=== PATIENT | male | born 1990 | race Caucasian/White ===

== ENCOUNTER 2017-03-31 12:59 | Emergency (ER) | payer BC ==
[~2017-03-31] VITALS: Ht 177.8 cm; Wt 102.5 kg
[2017-03-31 13:05] VITALS: TEMP 36.7; O2SAT 96; Ht 177.8 cm; Wt 102.5 kg
[2017-03-31] MEDS ORDERED: IBUP-1050 PO (13:14)
--- NOTE | 2017-03-31 13:24 | EMERGENCY ROOM VISIT NOTE ---
ED Visit Note First contact with patient: 13:07 CHIEF COMPLAINT: Ankle pain HISTORY OF PRESENT ILLNESS: This 26-year-old male patient presents to the emergency department ambulatory after sustaining an injury to the right ankle with a twisting, inversion motion when he twisted it 3 days ago. Complains of mild swelling and pain. The patient complains of pain along the outside of the ankle. The patient does not have pain of the foot. The patient rates the pain as sharp and 7/10. There was no audible pop. The patient is able to bear weight on the foot with moderate difficulty. Constant pain, worse with movement , weight bearing, and the dependent position. No knee pain, the patient is able to move their toes. No numbness or weakness of the foot, no laceration. The patient has not had a previous injury to this ankle. The patient has taken nothing for the pain. The patient denies any other injury. REVIEW OF SYSTEMS: A 6 system review of systems was completed with positives and pertinent negatives listed in the HPI. ALLERGIES: No known drug allergies MEDICATIONS: None PMH: Known SOCIAL HISTORY: The patient is a smoker PHYSICAL EXAM: Vital Signs: Reviewed Nurse's notes, vital signs stable. GENERAL : This is a 26-year-old male, no acute distress, but appears in pain, well- developed, well-nourished. MENTAL STATUS: Alert, oriented to person place and time, and cooperative. MUSCULOSKELETAL: The right ankle is swollen and tender over the lateral malleolus, but the skin is intact and there is no ligamentous instability. There is no fifth metatarsal tenderness. There is no tenderness over the rest of the foot. There is no calf or tibia/fibular tenderness. There is no visual deformity. The foot and toes are warm and well-perfused. Dorsalis pedis pulse 2+. Sensation to pain and light touch is intact. Capillary refill less than 2 seconds. EMERGENCY DEPARTMENT COURSE: I examined the patient. X-rays of the right ankle were reviewed by myself and read by radiology and reveal no fracture or dislocation. A gel splint was applied to the ankle under my direction and the position was satisfactory. Neurovascular status was rechecked and intact. The patient was instructed on the use of crutches. The patient was discharged home in good condition. RIGHT ANKLE 3 VIEWS CLINICAL HISTORY: Right ankle injury. FINDINGS: 3 views of the right ankle are obtained. No prior studies are available for comparison at the time of dictation. The skeletal structures are well mineralized. No fracture is seen. The ankle mortise is intact. There is a joint effusion. Soft tissue swelling is present around the ankle. IMPRESSION: Soft tissue swelling and joint effusion. No fracture is seen. Current/Historical Medications Scheduled Ibuprofen (Advil), 200 MG PO UD Allergies Coded Allergies: No Known Allergies (Unverified , 03/31/17) Vital Signs Date Time Temp Pulse Resp B/P (MAP) Pulse Ox O2 Delivery O2 Flow Rate FiO2 03/31/17 14:06 70 16 132/82 03/31/17 13:05 36.7 75 18 159/91 96 Room Air Departure Information Impression Primary Impression: Right ankle sprain Dispostion Home / Self-Care Condition GOOD Referrals No Doctor, Assigned (PCP) Mario Griffin, DO Patient Instructions Ankle Sprain, [facility] Additional Instructions Ice and elevate ankle for swelling and pain. Crutches with weight bearing as tolerated. Wear the splint 7-14 days or until pain subsides. Ibuprofen 600 mg every 6 hrs for pain. If ankle has not improved within 5-7 days, follow-up family doctor or orthopedic surgeon for further evaluation and management.
--- NOTE | 2017-03-31 13:35 | DIAGNOSTIC IMAGING REPORT ---
RIGHT ANKLE 3 VIEWS CLINICAL HISTORY: Right ankle injury. FINDINGS: 3 views of the right ankle are obtained. No prior studies are available for comparison at the time of dictation. The skeletal structures are well mineralized. No fracture is seen. The ankle mortise is intact. There is a joint effusion. Soft tissue swelling is present around the ankle. IMPRESSION: Soft tissue swelling and joint effusion. No fracture is seen. Electronically signed by: Scar Perrin M.D. 03/31/2017 1:34 PM Dictated Date/Time: 03/31/2017 1:33 PM
[2017-03-31 14:06] VITALS: BP 132/82; PULSE 70
== END 2017-03-31 14:08 | disposition home or self-care (01) ==
LOC: C.EDB 13:00 → C.EDD 14:08
DX: S93.401A Sprain of unspecified ligament of right ankle, initial encounter (principal); X58.XXXA Exposure to other specified factors, initial encounter; F17.200 Nicotine dependence, unspecified, uncomplicated

== ENCOUNTER 2017-10-27 01:52 | Emergency (ER) | payer BC, OTHER ==
[~2017-10-27] VITALS: Ht 177.8 cm; Wt 104.3 kg
[~2017-10-27 01:52] MED LIST: IBUP-1050 PO
[2017-10-27 02:02] VITALS: TEMP 36.9; Ht 177.8 cm; Wt 104.3 kg
[2017-10-27 02:39] LABS: CALCIUM 8.7 mg/dl (8.5-10.1); CREATININE 1.26 mg/dl (0.60-1.40); POTASSIUM 3.8 mmol/L (3.5-5.1)
[2017-10-27] MEDS ORDERED: LORAZEPAM 2 MG/ML 1 ML VIAL ONE (03:07)
[2017-10-27] MEDS ORDERED: HALOPERIDOL LACTATE 5 MG/ML 1 ML VIAL ONE (03:07)
--- NOTE | 2017-10-27 04:44 | EMERGENCY ROOM VISIT NOTE ---
History Report prepared by Marcelinoibkalyan: Denis Dacosta Under the Supervision of: Dr. Aline Canales D.O. First contact with patient: 01:59 Chief Complaint: ALCOHOL OVERDOSE Stated Complaint: ALCOHOL OVERDOSE History of Present Illness The patient is a 27 year old male who presents to the Emergency Room by EMS with complaints of constant alcohol intoxication beginning shortly prior to arrival. He denies any nausea, or pain. He denies drinking any alcohol tonight. The patient denies any falls or trauma. He states "I do what I do, and I do when I do it". Per nursing staff, the patient admitted to drinking 8 double IPA' s. HPI limited secondary to alcohol intoxication. Per EMS, [place] police found patient crawling on his hands and knees in a snowbank. Source of History: patient, nursing staff History Limited By: intoxication (alcohol) Onset: Shortly prior to arrival Quality: other (alcohol intoxication) Timing: constant Associated Symptoms: No headache, No neck pain, No chest pain, No nausea, No abdominal pain, No back pain Review of Systems ROS limited secondary to alcohol intoxication. Past Medical & Surgical Unobtainable secondary to alcohol intoxication. Family History Unobtainable secondary to alcohol intoxication. Social History Smoking Status: Current Every Day Smoker Unobtainable secondary to alcohol intoxication. Current/Historical Medications No Active Prescriptions or Reported Meds Allergies Coded Allergies: No Known Allergies (Unverified , 03/31/17) Physical Exam Vital Signs Date Time Temp Pulse Resp B/P (MAP) Pulse Ox O2 Delivery O2 Flow Rate FiO2 10/27/17 06:45 94 27 128/68 98 10/27/17 06:22 94 27 98 Room Air 10/27/17 06:07 92 21 100 10/27/17 06:05 83 10/27/17 05:52 103 21 98 10/27/17 05:37 106 22 10/27/17 05:32 86 16 95 10/27/17 05:17 83 24 96 10/27/17 05:02 91 96 10/27/17 04:47 85 20 128/68 96 10/27/17 03:42 94 95 10/27/17 03:31 139/65 10/27/17 03:27 112 94 10/27/17 03:12 101 21 96 10/27/17 02:57 120 26 10/27/17 02:12 122 96 10/27/17 02:07 124 10/27/17 02:07 132 94 Room Air 10/27/17 02:02 36.9 118 24 151/107 96 Room Air 10/27/17 02:01 151/107 Physical Exam GENERAL: alert, well appearing, well nourished, no distress, non-toxic. Smells of ETOH. HEAD: Normocephalic and atraumatic EYE EXAM: Mildly injected conjunctiva, PERRL and EOM's grossly intact OROPHARYNX: no exudate, no erythema, lips, buccal mucosa, and tongue normal and mucous membranes are moist NECK: supple, no nuchal rigidity, no adenopathy, non-tender LUNGS: Clear to auscultation. Normal chest wall mechanics, no wheezes/rhonchi/ rales. No chest wall crepitus or evidence of trauma HEART: no murmurs, S1 normal and S2 normal ABDOMEN: abdomen soft, non-tender, normo-active bowel sounds, no masses, no rebound or guarding. BACK: Back is symmetrical on inspection and there is no deformity, no midline tenderness, no CVA tenderness. No evidence of trauma. SKIN: no rashes and no bruising UPPER EXTREMITIES: upper extremities are grossly normal. No evidence of trauma or deformities, full range of motion, normal pulses. LOWER EXTREMITIES: No pitting edema. No evidence of trauma or deformities, full range of motion, normal pulses. NEURO EXAM: Normal sensorium, cranial nerves II-XII grossly intact, slightly slurred speech, no gross weakness of arms, no gross weakness of legs. Will not cooperate for any additional neuro testing. Medical Decision & Procedures Laboratory Results 10/27/17 02:13 Test 10/27/17 02:13 10/27/17 02:35 Anion Gap 9.0 mmol/L (3-11) Est Creatinine Clear Calc Drug Dose 108.4 ml/min Estimated GFR () 91.3 Estimated GFR (Non- 78.8 BUN/Creatinine Ratio 10.6 (10-20) Calcium Level 8.7 mg/dl (8.5-10.1) Ethyl Alcohol mg/dL 303.0 mg/dl (0-3) Urine Opiates Screen NEG (NEG) Urine Methadone, Qualitative NEG (NEG) Urine Barbiturates NEG (NEG) Urine Phencyclidine (PCP) Level NEG (NEG) Ur Amphetamine/Methamphetamine NEG (NEG) MDMA (Ecstasy) Screen NEG (NEG) Urine Benzodiazepines Screen NEG (NEG) Urine Cocaine Metabolite NEG (NEG) Urine Marijuana (THC) NEG (NEG) Laboratory results per my review. ED Course 0201: The patient was evaluated in room A9B. A complete history and physical exam was performed. 0246: The patient is being generally uncooperative with nursing staff. Security was called to monitor the patient at bedside. 0631: Upon reevaluation, the patient is more clinically sober. I discussed the findings and the treatment plan with the patient. He would like to know why he was held against his will and treated so poorly. He asked me why he was not give any water to drink. I explained about the concern of vomiting due to the patient's high level of intoxication. The patient would like to know if he is being arrested by police, and I told him I was not sure. He would also like to know the cost of the hospital bill, and why he did not receive IV fluids. I informed him of the national IV fluid shortage, and the fact that he was not actively vomiting during his stay in the ED. A female friend of the patient has arrived and is at bedside. She states that she is willing to assume responsibility of the patient. The patient was discharged home. Medical Decision Differential diagnosis: Etiologies such as alcohol intoxication, toxicologic, infection, hypoglycemia, electrolyte abnormalities, cardiac sources, intracerebral event, neurologic, as well as others were entertained. Patient found to have alcohol intoxication, and was agitated and belligerent with staff from several episodes. Patient's vital signs stable, no evidence of trauma and physical exam, and with improved sobriety, patient continued to deny any trauma or injury. Patient had no other complaints throughout. Patient had no vomiting here. Patient discharged the care of a sober friend who stated she was willing to assume responsibility of him. Discussed his levels of intoxication, concern for responsible drinking, discussed symptoms to watch and return for, continued hydration today at home, he and friend verbalized understanding were agreeable with plan. Medication Reconcilliation Current Medication List: was personally reviewed by me Blood Pressure Screening Patient's blood pressure: Elevated blood pressure Blood pressure disposition: Elevated BP felt to be situational Impression Primary Impression: Alcoholic intoxication Scribe Attestation The scribe's documentation has been prepared under my direction and personally reviewed by me in its entirety. I confirm that the note above accurately reflects all work, treatment, procedures, and medical decision making performed by me. Departure Information Dispostion Home / Self-Care Prescriptions No Active Prescriptions or Reported Meds Referrals No Doctor, Assigned (PCP) Patient Instructions [facility] Additional Instructions Please drink responsibly and in a safe location. Do not drink and drive. If you have any new or concerning symptoms, please return to the emergency room. Please drink plenty of fluids to stay well hydrated. Problem Qualifiers Primary Impression: Alcoholic intoxication Complication of substance-induced condition: uncomplicated Qualified Codes: F10.920 - Alcohol use, unspecified with intoxication, uncomplicated
[2017-10-27 06:45] VITALS: BP 128/68; PULSE 94; O2SAT 98
== END 2017-10-27 06:45 | disposition home or self-care (01) ==
LOC: EDBD 01:52 → C.EDA 01:54
DX: F10.120 Alcohol abuse with intoxication, uncomplicated (principal); F17.210 Nicotine dependence, cigarettes, uncomplicated